=== PATIENT | male | born 1990 | race Caucasian/White ===

== ENCOUNTER 2018-01-29 13:21 | Emergency (ER) | payer MEDICAID ==
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
[2018-01-29] MEDS ORDERED: SKIN ADHESIVE (DERMABOND) 1 EACH TP ONE (13:59)
[2018-01-29 14:44] VITALS: BP 112/76
== END 2018-01-29 14:44 | disposition home or self-care (01) ==
PROC: 0HQKXZZ Repair Right Lower Leg Skin, External Approach (ICD-10-PCS; principal; 2018-01-29)
DX: S91.011A Laceration without foreign body, right ankle, initial encounter (principal); V18.0XXA Pedal cycle driver injured in noncollision transport accident in nontraffic accident, initial encounter; Y93.55 Activity, bike riding